=== PATIENT | male | born 1960 | race Caucasian/White ===

== ENCOUNTER 2019-10-16 16:22 | Emergency (ER) | payer OTHER ==
[2019-10-16] MEDS ORDERED: NORMAL SALINE 1000 ML 1,000 ML IV ONE ×2 (16:47→18:42)
[2019-10-16] MEDS ORDERED: MORPHINE SULFATE 10 MG/ML INJ IV ONE ×2 (16:48→18:31)
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
[2019-10-16 18:12] LABS: ABSOLUTE LYMPHOCYTES (AUTO) 1.7 10^3/uL (0.5-4.7); ABSOLUTE MONOCYTES (AUTO) 0.3 10^3/uL (0.1-1.4); ABSOLUTE NEUT (AUTO) 3.1 10^3/uL (1.7-8.2); BASOPHILS % (AUTO) 0.6 % (0-2); EOSINOPHILS % (AUTO) 0.7 % (0-6); HEMATOCRIT 37.1 % (37.9-51.0); HEMOGLOBIN 12.8 g/dL (13.5-17.0); LYMPHOCYTES % (AUTO) 32.9 % (13-45); MEAN CORPUSCULAR HEMOGLOBIN 30.2 pg (27.0-33.4); MEAN CORPUSCULAR HGB CONC 34.5 g/dL (32.0-36.0); MEAN CORPUSCULAR VOLUME 87 fl (80-97); MONOCYTES % (AUTO) 5.2 % (3-13); PLATELET COUNT 231 10^3/uL (150-450); RED BLOOD COUNT 4.24 10^6/uL (4.35-5.55); RED CELL DISTRIBUTION WIDTH 15.7 % (11.5-14.0); SEGMENTED NEUTROPHILS % (AUTO) 60.6 % (42-78); TOTAL CELLS COUNTED % (AUTO) 100 %; WHITE BLOOD COUNT 5.1 10^3/uL (4.0-10.5)
[2019-10-16 18:31] LABS: ANION GAP 13 (5-19); BLOOD UREA NITROGEN 11 mg/dL (7-20); CALCIUM 8.4 mg/dL (8.4-10.2); CARBON DIOXIDE 19 mmol/L (22-30); CHLORIDE 104 mmol/L (98-107); POTASSIUM 4.3 mmol/L (3.6-5.0)
[2019-10-16] MEDS ORDERED: LABETALOL HCL INJ 20 MG/4 ML DISP.SYRIN IV ONE (18:36)
[2019-10-16 18:40] LABS: GLUCOSE 430 mg/dL (75-110)
[2019-10-16 19:27] LABS: URINE AMPHETAMINES SCREEN NEGATIVE; URINE BARBITURATES SCREEN NEGATIVE; URINE BENZODIAZEPINES SCREEN NEGATIVE; URINE COCAINE SCREEN NEGATIVE; URINE MARIJUANA (THC) SCREEN NEGATIVE; URINE METHADONE SCREEN NEGATIVE; URINE PHENCYCLIDINE SCREEN NEGATIVE
[2019-10-16] MEDS ORDERED: METOPROLOL TARTRATE 25 MG TABLET PO ONE (20:03)
[2019-10-16] MEDS ORDERED: INSULIN REG, HUMAN 100 UNIT/ML 3 ML VIAL (PYX) IV ONE (20:03)
[2019-10-16 20:31] VITALS: BP 173/117
--- NOTE | 2019-10-16 22:47 | EKG REPORT ---
SEVERITY:- BORDERLINE ECG - SINUS TACHYCARDIA BORDERLINE T ABNORMALITIES, INFERIOR LEADS : Confirmed by: Svetlana Neves 16-Oct-2019 22:46:31
== END 2019-10-16 20:26 | disposition home or self-care (01) ==
LOC: ER 16:22
DX: S32.001A Stable burst fracture of unspecified lumbar vertebra, initial encounter for closed fracture (principal); E11.65 Type 2 diabetes mellitus with hyperglycemia; R00.0 Tachycardia, unspecified; M54.9 Dorsalgia, unspecified; G89.29 Other chronic pain; X58.XXXA Exposure to other specified factors, initial encounter; I10 Essential (primary) hypertension; Z79.899 Other long term (current) drug therapy; Z79.4 Long term (current) use of insulin
CPT/HCPCS: 93005; 96376; 99284; 96361; 96374; 96375; 36415; 82962; 85025; 80048; 80307; 72131; 93010; J3490; J2270; J1815; J7030

== ENCOUNTER 2019-11-07 10:45 | Emergency (ER) | payer OTHER, MEDICAID ==
[2019-11-07 11:29] LABS: ABSOLUTE BASOPHILS # (AUTO) 0.1 10^3/uL (0.0-0.2); ABSOLUTE EOSINOPHILS # (AUTO) 0.1 10^3/uL (0.0-0.6); ABSOLUTE LYMPHOCYTES (AUTO) 1.5 10^3/uL (0.5-4.7); ABSOLUTE MONOCYTES (AUTO) 0.4 10^3/uL (0.1-1.4); BASOPHILS % (AUTO) 1.1 % (0-2); EOSINOPHILS % (AUTO) 0.9 % (0-6); LYMPHOCYTES % (AUTO) 20.8 % (13-45); MEAN CORPUSCULAR HEMOGLOBIN 30.2 pg (27.0-33.4); MEAN CORPUSCULAR HGB CONC 34.9 g/dL (32.0-36.0); MEAN CORPUSCULAR VOLUME 87 fl (80-97); MONOCYTES % (AUTO) 6.2 % (3-13); PLATELET COUNT 214 10^3/uL (150-450); RED BLOOD COUNT 4.62 10^6/uL (4.35-5.55); RED CELL DISTRIBUTION WIDTH 15.1 % (11.5-14.0); TOTAL CELLS COUNTED % (AUTO) 100 %
[2019-11-07 11:47] LABS: ALBUMIN 4.3 g/dL (3.5-5.0); ALKALINE PHOSPHATASE 127 U/L (38-126); ANION GAP 9 (5-19); ASPARTATE AMINO TRANSFERASE 22 U/L (17-59); BLOOD UREA NITROGEN 11 mg/dL (7-20); CALCIUM 9.4 mg/dL (8.4-10.2); CARBON DIOXIDE 27 mmol/L (22-30); CHLORIDE 88 mmol/L (98-107); CREATINE KINASE 61 U/L (55-170); GLUCOSE 165 mg/dL (75-110)
[2019-11-07] MEDS ORDERED: ONDANSETRON HCL INJ/PF 4 MG/2 ML SDV IV ONE (11:58)
[2019-11-07 11:59] LABS: CREATINE KINASE MB 2.19 ng/mL (<4.55); TROPONIN I < 0.012 ng/mL
[2019-11-07] MEDS ORDERED: FAMOTIDINE INJ/PF 20 MG/2 ML SDV IV ONE (11:59)
[2019-11-07 12:31] LABS: ALCOHOL < 10 mg/dL (NONE DETECTED)
[2019-11-07 12:38] LABS: APPEARANCE,URINE CLEAR; BILIRUBIN,URINE NEGATIVE (NEGATIVE); COLOR,URINE DARK YELLOW; GLUCOSE, URINE 500 mg/dL (NEGATIVE); KETONES,URINE 25 mg/dL (NEGATIVE); LEUKOCYTE ESTERASE,URINE NEGATIVE (NEGATIVE); NITRITE,URINE NEGATIVE (NEGATIVE); PROTEIN,URINE 30 mg/dL (NEGATIVE); URINE AMPHETAMINES SCREEN NEGATIVE; URINE BARBITURATES SCREEN NEGATIVE; URINE BENZODIAZEPINES SCREEN NEGATIVE; URINE COCAINE SCREEN NEGATIVE; URINE MARIJUANA (THC) SCREEN NEGATIVE; URINE METHADONE SCREEN NEGATIVE; URINE PHENCYCLIDINE SCREEN NEGATIVE; URINE SPECIFIC GRAVITY 1.017
[2019-11-07 12:39] LABS: ADD MANUAL MICROSCOPIC YES; RBC,URINE NONE SEEN /HPF; WBC,URINE RARE /HPF
--- NOTE | 2019-11-07 12:47 | RADIOLOGY REPORT (SQ) ---
EXAM DESCRIPTION: CHEST SINGLE VIEW IMAGES COMPLETED DATE/TIME: 11/07/2019 12:37 pm REASON FOR STUDY: FALL COMPARISON: None. EXAM PARAMETERS: NUMBER OF VIEWS: One view. TECHNIQUE: Single frontal radiographic view of the chest acquired. RADIATION DOSE: NA LIMITATIONS: None. FINDINGS: LUNGS AND PLEURA: No opacities, masses or pneumothorax. No pleural effusion. MEDIASTINUM AND HILAR STRUCTURES: No masses. Contour normal. HEART AND VASCULAR STRUCTURES: Heart normal in size. Normal vasculature. BONES: No acute findings. HARDWARE: None in the chest. OTHER: No other significant finding. IMPRESSION: NO ACUTE RADIOGRAPHIC FINDING IN THE CHEST. TECHNICAL DOCUMENTATION: JOB ID: [id number] 2010 [employer]- All Rights Reserved Reading location - IP/workstation name: [email or web address]
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
--- NOTE | 2019-11-07 13:03 | RADIOLOGY REPORT (SQ) ---
EXAM DESCRIPTION: CT CERVICAL SPINE WITHOUT IMAGES COMPLETED DATE/TIME: 11/07/2019 12:51 pm REASON FOR STUDY: FALL/NECK PAIN COMPARISON: None. TECHNIQUE: Axial images acquired through the cervical spine without intravenous contrast. Images re viewed with lung, soft tissue and bone windows. Reconstructed coronal and sagittal MPR images review ed. Images stored on PACS. All CT scanners at this facility use dose modulation, iterative reconstruction, and/or weight based d osing when appropriate to reduce radiation dose to as low as reasonably achievable (ALARA). [facility]: Dose Right [facility]: CareDose [facility]: Dose Right [facility]: Teradose 4D [facility]: [employer] RADIATION DOSE: CT Rad equipment meets quality standard of care and radiation dose reduction techniq ues were employed. CTDIvol: 24.0 mGy. DLP: 500 mGy-cm. mGy. LIMITATIONS: None. FINDINGS: ALIGNMENT: Anatomic. MINERALIZATION: Normal. VERTEBRAL BODIES: No fractures or dislocation. DISCS: Multilevel disc space narrowing with osteophytes. FACETS, LATERAL MASSES, POSTERIOR ELEMENTS: Facet arthropathy. No fractures. No dislocation. No ac radha findings. HARDWARE: None in the spine. VISUALIZED RIBS: No fractures. LUNG APICES AND SOFT TISSUES: No significant or acute findings. OTHER: No other significant finding. IMPRESSION: CHRONIC DEGENERATIVE CHANGES. NO ACUTE FINDINGS. TECHNICAL DOCUMENTATION: JOB ID: [id number] Quality ID # 436: Final reports with documentation of one or more dose reduction techniques (e.g., Au tomated exposure control, adjustment of the mA and/or kV according to patient size, use of iterative reconstruction technique) 2010 [employer]- All Rights Reserved Reading location - IP/workstation name: [email or web address]
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
[2019-11-07] MEDS ORDERED: NORMAL SALINE 1000 ML 1,000 ML with POTASSIUM CHLORIDE 20 MEQ, MAGNESIUM SULFATE 8 MEQ,... IV ONE ×5 (14:00)
[2019-11-07] MEDS ORDERED: OXYCODONE-ACETAMINOPHEN 5-325 MG TABLET PO ONE (14:53)
[2019-11-07] MEDS ORDERED: KETOROLAC TROMETHAMINE INJ/PF 30 MG/1 ML SDV IV ONE (14:53)
[2019-11-07] MEDS ORDERED: MECLIZINE HCL 25 MG TABLET PO ONE (15:24)
--- NOTE | 2019-11-07 15:41 | ER Document Report ---
Entered by SARIAH MCLEAN SCRIBE 11/07/19 1115 Acting as scribe for:SHARDA RICHMOND MD ED General - General Chief Complaint: Near Syncope Stated Complaint: NEAR SYNCOPE/MALAISE Primary Care Provider: PANCHO RODRIGUEZ [Primary Care Provider] - Follow up as needed Information source: Patient Notes: This 59-year-old male who is an alcoholic, diabetic and has peripheral artery disease as well as neuropathy presents to the emergency department complaining of being lightheaded and dizzy for the past couple of days. Patient describes that on Wednesday he went to go to the bathroom and his legs gave out. Patient states that he hit his head on the door and he felt disoriented afterwards. Curry stratton said that he checked his blood sugar after the fall and it was 255. Patient mentions that he also fell 2 months ago when he was walking. Patient states that he has neuropathy which causes his legs itch and says he has to be careful when he walks due to poor balance. Patient mentions that he has not eaten for 3 days and he was drinking beer last week as well as on Wednesday (3 days ago). Patient reports that his last drink was beer at 5 PM yesterday. Patient reports nausea today, headache and back pain. Patient denies chest pain, suicidal ideation, homicidal ideation, hallucinations, vision changes and difficulty swallowing. Patient states that he is up-to-date on his tetanus vaccine. Patient states that 5 days ago his depression "hit like a bunch of bricks". - Related Data Allergies/Adverse Reactions: No Known Allergies Allergy (Verified 10/16/19 16:34) Past Medical History - General Information source: Patient - Social History Smoking Status: Never Smoker Cigarette use (# per day): No Chew tobacco use (# tins/day): No Frequency of alcohol use: Heavy Drug Abuse: None Lives with: Alone Family History: Reviewed & Not Pertinent Patient has homicidal ideation: No - Past Medical History Cardiac Medical History: Reports: Hx Congestive Heart Failure, Other - Peripheral Artery Disease Endocrine Medical History: Reports: Hx Diabetes Mellitus Type 2 Psychiatric Medical History: Reports: Hx Depression Past Surgical History: Reports: Hx Abdominal Surgery - Intestinal Blockage, Hx Coronary Stent - X1, Hx Orthopedic Surgery - Back X3 Review of Systems - Review of Systems Constitutional: See HPI, Weakness EENT: See HPI. denies: Blurred vision, Double vision, Difficulty swallowing Cardiovascular: See HPI, Dizziness, Lightheaded. denies: Chest pain Respiratory: No symptoms reported Gastrointestinal: See HPI, Nausea Genitourinary: No symptoms reported Male Genitourinary: No symptoms reported Musculoskeletal: See HPI, Back pain Skin: No symptoms reported Hematologic/Lymphatic: No symptoms reported Neurological/Psychological: See HPI, Depression, Headaches. denies: Hallucinations, Homicidal ideation, Suicidal ideation -: Yes All other systems reviewed and negative Physical Exam - Vital signs Vitals: Resp BP Pulse Ox 14 154/89 H 98 11/07/19 10:52 11/07/19 10:52 11/07/19 10:52 - Notes Notes: Physical Exam: General: Alert, appears well. HEENT: Atraumatic. PERRL. Extraocular movements intact. Oropharynx clear. Longitudinal and horizontal healing laceration over the left eyebrow region that is about 7 cm in length. There is periorbital swelling and ecchymosis. Right TM was not visualized due to a cerumen impaction. Left TM is within normal limits. Jaw has full ROM. Neck: Supple. Non-tender. Respiratory: No respiratory distress. Clear and equal breath sounds bilaterally. Cardiovascular: Regular rate and rhythm. Abdominal: Normal Inspection. Non-tender. No distension. Normal Bowel Sounds. Back: Lower midline tenderness to palpation over the previous known fracture. Extremities: Moves all four extremities. Upper extremities: Normal inspection. Normal ROM. Lower extremities: No edema. Normal ROM. Old abrasions on the right lower leg from the knee down. Skin is callused on the dorsal feet. Peripheral disease bilaterally; left is greater than right. Legs are tender to light touch. Neurological: Normal cognition. AAOx4. Normal speech. Psychological: Normal affect. Normal Mood. Skin: Warm. Dry. Normal color. Course - Re-evaluation Re-evalutation: 11/07/19 15:16 Patient has been given Percocet and IV ketorolac for his pain. Patient is now receiving IV banana bag at this time. 11/07/19 15:30 Patient denies any suicidal homicidal ideation. 11/07/19 15:31 Patient is currently being evaluated by the mental health team and they are diligently working on assisting patient fine a placement as an inpatient for his depression grief and alcoholism. - Vital Signs Vital signs: Temp Pulse Resp BP Pulse Ox 97.7 F 80 19 143/91 H 98 11/07/19 11:12 11/07/19 11:11 11/07/19 14:00 11/07/19 12:00 11/07/19 14:00 11/07/19 15:15 Vital signs stable - Laboratory Result Diagrams: 11/07/19 11:19 11/07/19 11:19 Laboratory results interpreted by me: 11/07/19 11/07/19 11/07/19 11:19 11:19 11:56 RDW 15.1 H Sodium 124.0 L Chloride 88 L Glucose 165 H Alkaline Phosphatase 127 H Urine Protein 30 H Urine Glucose (UA) 500 H Urine Ketones 25 H Urine Blood SMALL H Urine Urobilinogen 4.0 H Laboratory shows a mild hyponatremia at 124.5 patient is receiving IV normal saline with a banana bag that includes multivitamins , folate ,thiamine and magnesium. - Diagnostic Test Radiology reviewed: Image reviewed, Reports reviewed Radiology results interpreted by me: 11/07/19 15:08 CT scan of head shows encephalomalacia in the right frontal region no acute process. CT scan of face no acute injuries no fractures. Noted maxillary sinus disease. CT C-spine shows multilevel degenerative disc disease no acute fractures. CT scan lumbar spine shows prior surgery at L1-2. Prior burst fracture at L1 which shows a decrease in height in the interval time. From previous study several weeks ago. Height at this time of the L1 vertebral body is about 50% of normal height. 11/07/19 15:14 Chest x-ray shows no acute process. - EKG Interpretation by Me Additional EKG results interpreted by me: 11/07/19 15:07 Twelve-lead EKG shows normal sinus rhythm rate of [address]-T wave changes. Discharge - Discharge Clinical Impression: Accidental fall, Closed head injury, Forehead laceration, Back pain, Alcoholism, Depression, Labyrinthitis, Insulin dependent diabetes mellitus, Closed fracture of lumbar vertebral body Condition: Good Disposition: HOME, SELF-CARE Instructions: Labyrinthitis ([facility]), Oral Narcotic Medication ([facility]) Additional Instructions: Fracture You have a fracture. The typical broken bone requires only protection and sufficient time for healing. "Setting" is necessary only if the bones are crooked or out of position. The physician will re-assess you periodically to make certain that the bone heals without complications. It's important that you follow the instructions given you. The initial treatment is immobilization, elevation of the injury, and cold packs. Not all fractures require a cast. Depending on the location and type of fracture, immobilization may consist of a splint, cast, sling, bulky dressing, or simply rest. The length of time required for healing depends on the location and type of fracture, and on the age of the patient. The treatment plan the physician has outlined for you is customized to your fracture and health condition. Call the doctor or return at once if pain becomes severe, or if severe swelling or numbness develop. As you know you have a fracture of your L1 vertebral body that occurred 3 to 4 weeks ago. You recently fell in the past 2 days and we reexamined that area once with CT scan. It shows today a decrease in the height of the burst fracture in L1. Now the total height of the lumbar vertebrae is about 50% of its normal state. We recommend that you continue to follow-up with the back specialist program that you have been in contact with regarding what ever repairs what ever treatment plan that they have for you. Meanwhile we will put you on tramadol as needed for pain for 1 week.Depression Your evaluation reveals that you have mental depression. While symptoms may be vague, they often include disturbance of sleep, fatigue, loss of appetite, and general loss of interest in life. While depression may be a side effect of drugs, or a reaction to a major change in your life, many cases have no known cause. If depression is acute, and related to a major loss in your life, you can expect it to clear completely with time. If you have been depressed a long time, are prone to repeated bouts of depression or low mood, or have been thinking of suicide, get help. Depression can be treated with anti-depressant medication and counselling. Long-term depression will often take a few weeks to clear, even with appropriate medication. Follow-up care is important. Contact your physician, the hospital emergency center, crisis line, or your counsellor if you are losing control or having self-destructive thoughts. You have depression as well as alcoholism and also agrees reaction to your recent mother's . You have been evaluated by the mental health team and the plan is to assist you with finding inpatient alcohol detox program as well as further treatment of your depression and grief. Prescriptions: Tramadol HCl [Ultram 50 mg Tablet] 50 mg PO Q6HP PRN #40 tablet PRN Reason: SEVERE PAIN Meclizine HCl [Antivert 25 mg Tablet] 25 mg PO TID PRN #30 tablet PRN Reason: Duloxetine HCl [Cymbalta 30 mg Capsule.dr] 30 mg PO ASDIR PRN #90 capsule.dr PRN Reason: Referrals: LOCALMD,NO [Primary Care Provider] - Follow up as needed I personally performed the services described in the documentation, reviewed and edited the documentation which was dictated to the scribe in my presence, and it accurately records my words and actions.
[2019-11-07] MEDS ORDERED: NORMAL SALINE 1000 ML 1,000 ML with POTASSIUM CHLORIDE 20 MEQ, MAGNESIUM SULFATE 8 MEQ,... IV SCH ×5 (18:00)
[2019-11-07 18:50] VITALS: BP 142/85
--- NOTE | 2019-11-08 08:36 | EKG REPORT ---
SEVERITY:- NORMAL ECG - SINUS RHYTHM : Confirmed by: Svetlana Neves 08-Nov-2019 08:36:07
== END 2019-11-07 19:01 | disposition home or self-care (01) ==
LOC: ER 10:45
DX: S09.90XA Unspecified injury of head, initial encounter (principal); S32.011A Stable burst fracture of first lumbar vertebra, initial encounter for closed fracture; S01.81XA Laceration without foreign body of other part of head, initial encounter; R42 Dizziness and giddiness; R11.0 Nausea; R51 Headache; M54.9 Dorsalgia, unspecified; R53.1 Weakness; F32.9 Major depressive disorder, single episode, unspecified; F10.20 Alcohol dependence, uncomplicated; H83.09 Labyrinthitis, unspecified ear; E87.1 Hypo-osmolality and hyponatremia; W19.XXXA Unspecified fall, initial encounter; I50.9 Heart failure, unspecified; E11.9 Type 2 diabetes mellitus without complications; Z79.4 Long term (current) use of insulin
CPT/HCPCS: 93005; 99284; 96375; 96365; 96366; 36415; 82553; 80307 ×2; 82550; 83690; 83735; 85025; 80053; 81001; 84484; 71045; 70450; 70486; 72125; 72131; 93010; J3475; J1885; J3480; J3411; J2405; J7030; S0028; J3490

== ENCOUNTER 2019-12-24 13:27 | Emergency (ER) | payer MEDICAID, OTHER ==
--- NOTE | 2019-12-24 15:09 | ER Document Report ---
ED Medical Screen (RME) - General Chief Complaint: Weakness Stated Complaint: WEAKNESS Time Seen by Provider: 12/24/19 14:39 Primary Care Provider: PANCHO RODRIGUEZ [Primary Care Provider] - Follow up as needed Notes: 59-year-old male with past medical history of hypertension, diabetes, hyperlipidemia presenting today with generalized weakness x1 week. States he has shortness of breath on exertion for 1 week. Also reports a substernal chest discomfort for the last few days. Also reports that his left great toe has an ulcer on it for 3 days. Is warm and tender to the touch. States that he was seen approximately 2 weeks ago down in [place] at the hospital due to bilateral lower extremity swelling. Was given Lasix 20 mg which relief. States that the swelling did not completely go away so he contacted his doctor which increase his dose to 40 mg. Recently was up in [place] participating in an outreach program. Returned back to [place] today to talk to his sponsor for his alcoholism. Has been sober for 6 weeks. Is in the recovery portion of his program. I have greeted and performed a rapid initial assessment of this patient. A comprehesive ED assessment and evaluation of this patient, analysis of test results and completion of the medical decision-making process will be conducted by additional ED providers. - Related Data Allergies/Adverse Reactions: No Known Allergies Allergy (Verified 12/24/19 14:31) Past Medical History - Social History Chew tobacco use (# tins/day): No Frequency of alcohol use: None Drug Abuse: None - Past Medical History Cardiac Medical History: Reports: Hx Congestive Heart Failure, Hx Hypertension Endocrine Medical History: Reports: Hx Diabetes Mellitus Type 2 GI Medical History: Reports: None Musculoskeltal Medical History: Reports None Psychiatric Medical History: Reports: Hx Depression Past Surgical History: Reports: Hx Abdominal Surgery - Intestinal Blockage, Hx Bowel Surgery, Hx Coronary Stent - X1, Hx Orthopedic Surgery - Back X3 Review of Systems - Review of Systems Constitutional: See HPI EENT: No symptoms reported Cardiovascular: See HPI Respiratory: See HPI Gastrointestinal: No symptoms reported Genitourinary: No symptoms reported Male Genitourinary: No symptoms reported Physical Exam - Vital signs Vitals: Temp Pulse Resp BP Pulse Ox 98.2 F 84 18 105/73 96 12/24/19 13:43 12/24/19 13:43 12/24/19 13:43 12/24/19 13:43 12/24/19 13:43 Interpretation: Normal - Notes Notes: Patient is alert and oriented. HEENT his lungs are clear to auscultation bilaterally. Heart regular rate rhythm no murmurs rubs or gallops. Bilateral lower extremity edema. Approximately 1 inch ulcer on dorsal aspect of first left toe. Course - Vital Signs Vital signs: Temp Pulse Resp BP Pulse Ox 98.2 F 84 18 105/73 96 12/24/19 13:43 12/24/19 13:43 12/24/19 13:43 12/24/19 13:43 12/24/19 13:43 Doctor's Discharge - Discharge Referrals: LOCALMD,NO [Primary Care Provider] - Follow up as needed
[2019-12-24 15:34] LABS: APPEARANCE,URINE CLEAR; BILIRUBIN,URINE NEGATIVE (NEGATIVE); COLOR,URINE STRAW; GLUCOSE, URINE >=500 mg/dL (NEGATIVE); KETONES,URINE NEGATIVE (NEGATIVE); LEUKOCYTE ESTERASE,URINE NEGATIVE (NEGATIVE); NITRITE,URINE NEGATIVE (NEGATIVE); PROTEIN,URINE NEGATIVE (NEGATIVE); URINE SPECIFIC GRAVITY 1.007; UROBILINOGEN,URINE NEGATIVE mg/dL (<2.0)
[2019-12-24 15:46] LABS: ABSOLUTE EOSINOPHILS # (AUTO) 0.1 10^3/uL (0.0-0.6); ABSOLUTE LYMPHOCYTES (AUTO) 1.6 10^3/uL (0.5-4.7); ABSOLUTE MONOCYTES (AUTO) 0.7 10^3/uL (0.1-1.4); ABSOLUTE NEUT (AUTO) 4.5 10^3/uL (1.7-8.2); BASOPHILS % (AUTO) 0.6 % (0-2); EOSINOPHILS % (AUTO) 1.7 % (0-6); HEMATOCRIT 34.3 % (37.9-51.0); HEMOGLOBIN 11.9 g/dL (13.5-17.0); LYMPHOCYTES % (AUTO) 22.6 % (13-45); MEAN CORPUSCULAR HEMOGLOBIN 30.3 pg (27.0-33.4); MEAN CORPUSCULAR HGB CONC 34.6 g/dL (32.0-36.0); MEAN CORPUSCULAR VOLUME 87 fl (80-97); MONOCYTES % (AUTO) 10.2 % (3-13); PLATELET COUNT 286 10^3/uL (150-450); RED BLOOD COUNT 3.92 10^6/uL (4.35-5.55); RED CELL DISTRIBUTION WIDTH 13.3 % (11.5-14.0); SEGMENTED NEUTROPHILS % (AUTO) 64.9 % (42-78); TOTAL CELLS COUNTED % (AUTO) 100 %; WHITE BLOOD COUNT 6.9 10^3/uL (4.0-10.5)
[2019-12-24 15:57] LABS: ALBUMIN 4.3 g/dL (3.5-5.0); ALKALINE PHOSPHATASE 115 U/L (38-126); ANION GAP 7 (5-19); ASPARTATE AMINO TRANSFERASE 22 U/L (17-59); BILIRUBIN,TOTAL 0.4 mg/dL (0.2-1.3); BLOOD UREA NITROGEN 10 mg/dL (7-20); CALCIUM 9.2 mg/dL (8.4-10.2); CARBON DIOXIDE 27 mmol/L (22-30); CHLORIDE 101 mmol/L (98-107); GLUCOSE 240 mg/dL (75-110)
--- NOTE | 2019-12-24 16:03 | RADIOLOGY REPORT (SQ) ---
EXAM DESCRIPTION: CHEST SINGLE VIEW IMAGES COMPLETED DATE/TIME: 12/24/2019 2:38 pm REASON FOR STUDY: shortness of breath COMPARISON: 11/07/2019 EXAM PARAMETERS: NUMBER OF VIEWS: One view. TECHNIQUE: Single frontal radiographic view of the chest acquired. RADIATION DOSE: NA LIMITATIONS: None. FINDINGS: LUNGS AND PLEURA: No opacities, masses or pneumothorax. No pleural effusion. MEDIASTINUM AND HILAR STRUCTURES: No masses. Contour normal. HEART AND VASCULAR STRUCTURES: Heart normal in size. Normal vasculature. BONES: No acute findings. HARDWARE: None in the chest. OTHER: No other significant finding. IMPRESSION: NO ACUTE RADIOGRAPHIC FINDING IN THE CHEST. TECHNICAL DOCUMENTATION: JOB ID: [id number] 2010 [employer]- All Rights Reserved Reading location - IP/workstation name: [email or web address]
--- NOTE | 2019-12-24 16:05 | RADIOLOGY REPORT (SQ) ---
EXAM DESCRIPTION: FOOT LEFT 2 VIEWS IMAGES COMPLETED DATE/TIME: 12/24/2019 3:39 pm REASON FOR STUDY: ulcer left great toe COMPARISON: None. NUMBER OF VIEWS: Two views. TECHNIQUE: AP and lateral radiographic images acquired of the left foot. LIMITATIONS: None. FINDINGS: MINERALIZATION: Normal. BONES: No acute fracture or dislocation. No cortical lucency or periosteal reaction. SOFT TISSUES: There is soft tissue swelling at the 1st toe. No radiopaque foreign body. Extensive v ascular calcifications are noted. IMPRESSION: Soft tissue swelling at the left 1st toe. No plain radiograph evidence for osteomyeliti s. If clinical concern persists, MRI can be obtained for further evaluation. TECHNICAL DOCUMENTATION: JOB ID: [id number] [place]-[id number] 2010 [employer]- All Rights Reserved Reading location - IP/workstation name: [email or web address]
[2019-12-24 16:16] LABS: NT PRO BNP 431 pg/mL (<125); TROPONIN I < 0.012 ng/mL
--- NOTE | 2019-12-24 18:35 | EKG REPORT ---
SEVERITY:- NORMAL ECG - SINUS RHYTHM : Confirmed by: Svetlana Neves 24-Dec-2019 18:34:16
--- NOTE | 2019-12-24 23:05 | ER Document Report ---
ED General - General Chief Complaint: Weakness Stated Complaint: WEAKNESS Time Seen by Provider: 12/24/19 14:39 Primary Care Provider: PANCHO RODRIGUEZ [NO LOCAL MD] - Follow up as needed - HPI Notes: Patient is a 59-year-old male who presents to the emergency department for evaluation. 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 He has a history of CHF. He was started on Lasix. He states that his swelling in his legs look slightly worse after working on his feet all day. He continues to take his medications as prescribed. The patient is moving to [place] tomorrow. He eventually admits to me that his sponsor is not available, he really does not have any place to go today. He states that he has a chronic wound on his left great toe that looks slightly more red, he is concerned about that, so he thought he should come to the ED and reevaluated, and talk to our social workers to see if any thing was available for him to have a place to stay tonight. He denies any fevers or chills. No nausea or vomiting. He is taking his medications as prescribed. Has been clean from alcohol for 6 weeks. He denies any other illicit drug use. - Related Data Allergies/Adverse Reactions: No Known Allergies Allergy (Verified 12/24/19 14:31) Home Medications: Lasix, Coreg, unknown cholesterol medication, lisinopril Past Medical History - General Information source: Patient - Patient has been sober since October 2019 - Social History Smoking Status: Never Smoker Chew tobacco use (# tins/day): No Frequency of alcohol use: None Drug Abuse: None Family History: Reviewed & Not Pertinent - Past Medical History Cardiac Medical History: Reports: Hx Congestive Heart Failure, Hx Coronary Artery Disease - Stent, Hx Hypertension Endocrine Medical History: Reports: Hx Diabetes Mellitus Type 2 GI Medical History: Reports: None Musculoskeletal Medical History: Reports None Psychiatric Medical History: Reports: Hx Depression Past Surgical History: Reports: Hx Abdominal Surgery - Intestinal Blockage, Hx Bowel Surgery, Hx Coronary Stent - X1, Hx Orthopedic Surgery - Back X3 Review of Systems - Review of Systems Constitutional: Diaphoresis Cardiovascular: Edema Skin: See HPI -: Yes All other systems reviewed and negative Physical Exam - Vital signs Vitals: Temp Pulse Resp BP Pulse Ox 98.2 F 84 18 105/73 96 12/24/19 13:43 12/24/19 13:43 12/24/19 13:43 12/24/19 13:43 12/24/19 13:43 - Notes Notes: Vital signs reviewed, please refer to chart. Head is normocephalic, atraumatic. Pupils equal round, reactive to light. Neck is supple without meningismus. Heart is regular rate and rhythm. Lungs are clear to auscultation bilaterally. Abdomen is soft, nontender, normoactive bowel sounds throughout. Extremities wi thout cyanosis, clubbing. Posterior calves are nontender. He has 1+ pitting edema to the feet and ankle bilaterally with no posterior calf tenderness noted. The patient has a 1 x 2 cm very superficial ulceration, old in appearance, over the distal interphalangeal joint, dorsal aspect, left great toe, with some reactive appearing erythema surrounding it. Peripheral pulses are equal. Skin is warm and dry. Patient is awake, alert, neurological exam is nonfocal. Course - Re-evaluation Re-evalutation: 12/24/19 23:13 Patient presents to the emergency department for evaluation. He had laboratory investigations ordered through triage. He has some trace edema. He states he has been feeling well since working all day in the hot sun. The patient has no clinical or overt signs of significant dehydration. He has some very mild edema but was on his feet all day. He has an ulceration which appears chronic in nature. He does not have any significant looking infection, but I will cover him for a few days with Cipro just to be safe. On further questioning, the patient admits that he has no place to stay tonight, wants to speak to a school social worker in regards to that. He plans on moving to [place], has a plan to go t o a detox center there. I explained to the patient that I have multiple outpatient options, but I do not have any inpatient options for him at this time. He cannot stay overnight in the emergency department to have some place to sleep. He is given a set of compression stockings, wound care is adm inistered to his left great toe. I will give him 1 dose of Cipro, a prescription for 2 more days, he is to follow-up in [place]. He is to return to the ED with worsening. - Vital Signs Vital signs: Temp Pulse Resp BP Pulse Ox 98.4 F 83 20 155/80 H 98 12/24/19 21:30 12/24/19 20:49 12/24/19 22:01 12/24/19 22:00 12/24/19 22:01 - Laboratory Result Diagrams: 12/24/19 15:10 12/24/19 15:10 Laboratory results interpreted by me: 12/24/19 12/24/19 12/24/19 13:42 15:10 15:10 RBC 3.92 L Hgb 11.9 L Hct 34.3 L Sodium 135.2 L Glucose 240 H NT-Pro-B Natriuret Pep Urine Glucose (UA) >=500 H 12/24/19 15:10 RBC Hgb Hct Sodium Glucose NT-Pro-B Natriuret Pep 431 H Urine Glucose (UA) - Diagnostic Test Radiology reviewed: Reports reviewed Radiology results interpreted by me: 12/24/19 23:15 Chest X-Ray 12/24/19 14:57 IMPRESSION: NO ACUTE RADIOGRAPHIC FINDING IN THE CHEST. Foot X-Ray 12/24/19 15:24 IMPRESSION: Soft tissue swelling at the left 1st toe. No plain radiograph evidence for osteomyelitis. If clinical concern persists, MRI can be obtained for further evaluation. - EKG Interpretation by Me Additional EKG results interpreted by me: 12/24/19 23:21 Sinus mechanism with rate of 71 bpm. Normal axis and intervals. No acute ST changes concerning for ischemia or infarction. Discharge - Discharge Clinical Impression: Diabetic ulcer of left great toe, Ankle edema, bilateral, Generalized weakness Condition: Stable Disposition: HOME, SELF-CARE Instructions: Dependent Edema ([facility]), Foot or Leg Ulcer ([facility]) Additional Instructions: Continue your home medications as prescribed. You are being started on a short course of Cipro for any potential infection in your left great toe. Wear compression stockings as given. Follow-up with primary care in [place] this week. Return to the emergency department there is any new concerning symptoms of any sort. Prescriptions: Ciprofloxacin HCl [Cipro 500 mg Tablet] 500 mg PO BID #5 tablet Referrals: LOCAL,NO [NO LOCAL MD] - Follow up as needed
[2019-12-24] MEDS ORDERED: CIPROFLOXACIN HCL 500 MG TABLET PO ONE (23:16)
[2019-12-24 23:36] VITALS: BP 128/82
== END 2019-12-24 23:53 | disposition home or self-care (01) ==
LOC: ER 13:27
DX: E11.621 Type 2 diabetes mellitus with foot ulcer (principal); L97.529 Non-pressure chronic ulcer of other part of left foot with unspecified severity; R60.0 Localized edema; R53.1 Weakness; Z79.899 Other long term (current) drug therapy; I25.10 Atherosclerotic heart disease of native coronary artery without angina pectoris; I11.0 Hypertensive heart disease with heart failure; I50.9 Heart failure, unspecified
CPT/HCPCS: 36415; 71045; 80053; 81001; 83880; 84484; 85025; 93005; 93010; 99285

== ENCOUNTER 2019-12-27 14:09 | Emergency (ER) | payer OTHER, MEDICAID ==
--- NOTE | 2019-12-27 14:35 | ER Document Report ---
ED Medical Screen (RME) - General Chief Complaint: Altered Mental Status Stated Complaint: CONFUSION Time Seen by Provider: 12/27/19 14:28 Notes: HPI: 59-year-old male with history of alcoholism brought to the emergency department today for evaluation of possibly being passed out on the side of the road. Patient adamantly denies being passed out on the side of the road states he was sitting on his bag. Patient states he was seen in the emergency department 2 days ago. Also complaining of left foot pain from a wound on the toe states he is diabetic. Patient states that he is moving to [place] from [place] but has still not gotten there yet. He does admit to drinking yesterday PHYSICAL EXAMINATION: Patient is answering questions appropriately he is alert. Patient knows his name, knows the month, knows the year. He is somewhat disheveled. Lung sounds are clear to auscultation, very mild tachycardia. No abdominal pain on palpation. Patient denies headache. Patient is very vague and why he was brought back to the emergency department today I have greeted and performed a rapid initial assessment of this patient. A comprehensive ED assessment and evaluation of the patient, analysis of test results and completion of medical decision making process will be conducted by an additional ED providers. - Related Data Allergies/Adverse Reactions: No Known Allergies Allergy (Verified 12/24/19 14:31) Past Medical History - Past Medical History Cardiac Medical History: Reports: Hx Congestive Heart Failure, Hx Coronary Artery Disease - Stent, Hx Hypertension Endocrine Medical History: Reports: Hx Diabetes Mellitus Type 2 Psychiatric Medical History: Reports: Hx Depression Past Surgical History: Reports: Hx Abdominal Surgery - Intestinal Blockage, Hx Bowel Surgery, Hx Coronary Stent - X1, Hx Orthopedic Surgery - Back X3 Physical Exam - Vital signs Vitals: Temp Pulse Resp BP Pulse Ox 99.6 F 109 H 16 123/66 95 12/27/19 14:19 12/27/19 14:19 12/27/19 14:19 12/27/19 14:19 12/27/19 14:19 Course - Vital Signs Vital signs: Temp Pulse Resp BP Pulse Ox 99.6 F 109 H 16 123/66 95 12/27/19 14:19 12/27/19 14:19 12/27/19 14:19 12/27/19 14:19 12/27/19 14:19
[2019-12-27 15:05] LABS: ABSOLUTE EOSINOPHILS # (AUTO) 0.1 10^3/uL (0.0-0.6); ABSOLUTE LYMPHOCYTES (AUTO) 2.8 10^3/uL (0.5-4.7); ABSOLUTE MONOCYTES (AUTO) 0.4 10^3/uL (0.1-1.4); ABSOLUTE NEUT (AUTO) 4.2 10^3/uL (1.7-8.2); BASOPHILS % (AUTO) 0.6 % (0-2); EOSINOPHILS % (AUTO) 1.8 % (0-6); HEMATOCRIT 37.3 % (37.9-51.0); LYMPHOCYTES % (AUTO) 36.6 % (13-45); MEAN CORPUSCULAR HEMOGLOBIN 30.4 pg (27.0-33.4); MEAN CORPUSCULAR HGB CONC 34.9 g/dL (32.0-36.0); MEAN CORPUSCULAR VOLUME 87 fl (80-97); MONOCYTES % (AUTO) 5.8 % (3-13); PLATELET COUNT 334 10^3/uL (150-450); RED BLOOD COUNT 4.27 10^6/uL (4.35-5.55); RED CELL DISTRIBUTION WIDTH 13.1 % (11.5-14.0); SEGMENTED NEUTROPHILS % (AUTO) 55.2 % (42-78); TOTAL CELLS COUNTED % (AUTO) 100 %; WHITE BLOOD COUNT 7.6 10^3/uL (4.0-10.5)
[2019-12-27 15:19] LABS: URINE AMPHETAMINES SCREEN NEGATIVE; URINE BARBITURATES SCREEN NEGATIVE; URINE BENZODIAZEPINES SCREEN NEGATIVE; URINE COCAINE SCREEN NEGATIVE; URINE MARIJUANA (THC) SCREEN NEGATIVE; URINE METHADONE SCREEN NEGATIVE; URINE PHENCYCLIDINE SCREEN NEGATIVE
[2019-12-27 15:23] LABS: ALBUMIN 4.4 g/dL (3.5-5.0); ALCOHOL 267 mg/dL (NONE DETECTED); ALKALINE PHOSPHATASE 104 U/L (38-126); ANION GAP 14 (5-19); ASPARTATE AMINO TRANSFERASE 36 U/L (17-59); BILIRUBIN,TOTAL 0.3 mg/dL (0.2-1.3); BLOOD UREA NITROGEN 5 mg/dL (7-20); CARBON DIOXIDE 21 mmol/L (22-30); CHLORIDE 104 mmol/L (98-107); CREATINE KINASE 124 U/L (55-170); GLUCOSE 230 mg/dL (75-110); POTASSIUM 4.2 mmol/L (3.6-5.0); TOTAL PROTEIN 7.5 g/dL (6.3-8.2)
[2019-12-27 19:05] VITALS: BP 147/90
--- NOTE | 2019-12-27 19:24 | ER Document Report ---
ED General - General Chief Complaint: General Weakness Stated Complaint: CONFUSION Time Seen by Provider: 12/27/19 14:28 - HPI Notes: Patient presents the emergency department for evaluation of generalized weakness. There was some report that he was "passed out" on the side of the road, but the patient vehemently denies this. He states he just feels weak. Overall he states he just wants to get to [place] to get help with his alcoholism. He left a residential program in [place], [place], because he stated that he did not feel safe there. He has been traveling to [place] because his sponsor lives here, but his sponsor is out of town. He states he still has no way to [place]. He states he has been keeping the wound on his left great toe clean. He states he did fill the antibiotics I prescribed him at his last visit. He does admit that he has been drinking some over the last few days. He denies any suicidal homicidal ideation. He denies any visual or auditory hallucinations. No fevers or chills. He states that he really does not have any pain in his great toe. He states he just wants to go to [place] to move onto the next stage of his rehabilitation. - Related Data Allergies/Adverse Reactions: No Known Allergies Allergy (Verified 12/24/19 14:31) Past Medical History - General Information source: Patient - Social History Smoking Status: Former Smoker Family History: Reviewed & Not Pertinent - Past Medical History Cardiac Medical History: Reports: Hx Congestive Heart Failure, Hx Coronary Artery Disease - Stent, Hx Hypertension Endocrine Medical History: Reports: Hx Diabetes Mellitus Type 2 Psychiatric Medical History: Reports: Hx Depression Past Surgical History: Reports: Hx Abdominal Surgery - Intestinal Blockage, Hx Bowel Surgery, Hx Coronary Stent - X1, Hx Orthopedic Surgery - Back X3 Review of Systems - Review of Systems Constitutional: See HPI Neurological/Psychological: See HPI -: Yes All other systems reviewed and negative Physical Exam - Vital signs Vitals: Temp Pulse Resp BP Pulse Ox 99.6 F 109 H 16 123/66 95 12/27/19 14:19 12/27/19 14:19 12/27/19 14:19 12/27/19 14:19 12/27/19 14:19 - Notes Notes: Vital signs reviewed, please refer to chart. Head is normocephalic, atraumatic. Pupils equal round, reactive to light. Neck is supple without meningismus. Heart is regular rate and rhythm. Lungs are clear to auscultation bilaterally. Abdomen is soft, nontender, normoactive bowel sounds throughout. Extremities w ithout cyanosis, clubbing. Posterior calves are nontender. Peripheral pulses are equal. Skin is warm and dry. He has a 2 cm ulceration noted over the left great toe, mildly macerated, some surrounding reactive appearing erythema, but no lymphangitic streaking. Full range of motion. Patient is awake, alert, neurological exam is nonfocal. Patient is mildly disheveled, but calm, cooperative, pleasant with examiner. Course - Re-evaluation Re-evalutation: 12/27/19 19:22 Patient presents to the emergency department for evaluation. He had laboratory investigations as ordered for psychiatric clearance. He has no significant leukocytosis. His blood sugar is elevated, but this is not surprising in a diabetic. The patient's wound looks similar to the way it looked the other day. I do not have a strong suspicion for an active infection at this time. His blood alcohol is elevated, again not unsurprising given the fact that he has been drinking. The patient does have manager land's transport to a [facility] in [place], where he will be accepted for further treatment of his alcoholism. The patient is anxious to go there, and he is medically cleared for this. He is to return to the ED with worsening. - Vital Signs Vital signs: Temp Pulse Resp BP Pulse Ox 98.4 F 100 12 147/90 H 98 12/27/19 18:00 12/27/19 18:00 12/27/19 18:00 12/27/19 18:00 12/27/19 18:00 - Laboratory Result Diagrams: 12/27/19 14:45 12/27/19 14:45 Laboratory results interpreted by me: 12/27/19 12/27/19 14:45 14:45 RBC 4.27 L Hgb 13.0 L Hct 37.3 L Carbon Dioxide 21 L BUN 5 L Creatinine 0.50 L Glucose 230 H - EKG Interpretation by Me Additional EKG results interpreted by me: 12/27/19 19:23 Sinus tachycardia with a rate of 107 bpm. Normal axis and intervals. No acute ST changes concerning for ischemia or infarction. Discharge - Discharge Clinical Impression: Diabetic ulcer of left great toe, Generalized weakness, Alcohol abuse Condition: Stable Disposition: OTHER Instructions: Chronic Alcoholism ([facility]), Foot or Leg Ulcer ([facility]) Additional Instructions: You will be transported to your residential treatment program in [place] by law enforcement officers. Continue to keep the wound on your foot clean with soap and water, watch for signs of infection, including but not limited to increased redness, drainage, fevers, red streaks, vomiting. You need to follow- up with primary care in 1 to 2 weeks. Return to the emergency department with w orsening or new concerning symptoms of any sort.
--- NOTE | 2019-12-27 22:01 | EKG REPORT ---
SEVERITY:- OTHERWISE NORMAL ECG - SINUS TACHYCARDIA : Confirmed by: Estrella Valentine MD 27-Dec-2019 22:01:29
== END 2019-12-27 19:42 | disposition other institution (70) ==
LOC: ER 14:09
DX: F10.20 Alcohol dependence, uncomplicated (principal); E11.621 Type 2 diabetes mellitus with foot ulcer; L97.529 Non-pressure chronic ulcer of other part of left foot with unspecified severity; E11.65 Type 2 diabetes mellitus with hyperglycemia; R53.1 Weakness; I25.10 Atherosclerotic heart disease of native coronary artery without angina pectoris; I10 Essential (primary) hypertension; Z87.891 Personal history of nicotine dependence
CPT/HCPCS: 36415; 80053; 80307; 82550; 84484; 85025; 93005; 93010; 99285